=== PATIENT | male | born 1970 | race African-American/Black ===

== ENCOUNTER 2017-12-22 11:11 | Emergency (ER) | payer MEDICAID ==
[~2017-12-22] VITALS: Ht 182.9 cm; Wt 99.0 kg
[2017-12-22] MEDS ORDERED: CEFTRIAXONE SODIUM 1 G/VIAL IM ONE (12:15)
[2017-12-22] MEDS ORDERED: LIDOCAINE HCL/PF 1% 2ML VIAL INFIL ONE (12:15)
[2017-12-22] MEDS ORDERED: IBUPROFEN 800MG TABLET PO ONE (12:15)
[2017-12-22] MEDS ORDERED: LIDOCAINE HCL/PF 1% 10 MG/ML 5ML VIAL IJ NR (12:35)
[2017-12-22 14:47] VITALS: BP 130/84
== END 2017-12-22 14:48 | disposition home or self-care (01) ==
LOC: ER 11:11
DX: S61.512A Laceration without foreign body of left wrist, initial encounter (principal); S60.222A Contusion of left hand, initial encounter; I10 Essential (primary) hypertension; F12.10 Cannabis abuse, uncomplicated; F17.200 Nicotine dependence, unspecified, uncomplicated; X99.1XXA Assault by knife, initial encounter; Y93.89 Activity, other specified; Y92.488 Other paved roadways as the place of occurrence of the external cause
CPT/HCPCS: 73110; 73120; 96372; 99284; J0696; J3490

== ENCOUNTER 2019-11-10 07:15 | Emergency (ER) | payer MEDICAID ==
[~2019-11-10] VITALS: Ht 188 cm; Wt 103.0 kg
[2019-11-10] MEDS ORDERED: LIDOCAINE HCL/PF 1% 10 MG/ML 5ML VIAL IJ ONE (08:15)
[2019-11-10] MEDS ORDERED: BACITRACIN ZINC OINT UDPKT TOP ONE (08:15)
[2019-11-10] MEDS ORDERED: IBUPROFEN 600MG TABLET PO ONE (08:15)
[2019-11-10 09:25] VITALS: BP 134/76
== END 2019-11-10 09:50 | disposition home or self-care (01) ==
LOC: ER 07:15
DX: S61.412A Laceration without foreign body of left hand, initial encounter (principal); X58.XXXA Exposure to other specified factors, initial encounter; Y93.89 Activity, other specified; Y92.89 Other specified places as the place of occurrence of the external cause; I10 Essential (primary) hypertension
CPT/HCPCS: 12004; 73130; 99283; J3490

== ENCOUNTER 2020-01-02 07:34 | Emergency (ER) | payer MEDICAID ==
[~2020-01-02] VITALS: Ht 177.8 cm; Wt 99.0 kg
[2020-01-02] MEDS ORDERED: ACETAMINOPHEN 325MG TABLET PO STA (08:26)
[2020-01-02] MEDS ORDERED: TETANUS, DIPHTHERIA, PERTUSSIS VAC/PF 0.5ML (>7YR OLD) IM ONE (08:30)
[2020-01-02 09:25] LABS: BASOPHILS % 0.3 % (0.0-2.0); EOSINOPHILS % 1.3 % (0.0-5.0); HEMATOCRIT. 37.2 % (42.0-52.0); HEMOGLOBIN. 12.6 g/dL (14.0-18.0); LYMPHOCYTES % 7.1 % (20.0-50.0); MEAN CORPUSCULAR VOLUME 91.5 fL (80.0-94.0); MEAN PLATELET VOLUME 9.6 fl (7.4-10.4); MONOCYTES % 4.1 % (2.0-8.0); NEUTROPHILS % 87.2 % (40.0-76.0); PLATELET 155 x1000/uL (130-400); RED BLOOD CELL COUNT 4.07 mill/uL (4.7-6.1); RED CELL DISTRIBUTION WIDTH 13.3 % (11.6-14.6)
[2020-01-02 09:31] LABS: CHLORIDE 110 mEq/L (98-107)
[2020-01-02] MEDS ORDERED: ASPIRIN 81MG TABLET PO ONE (10:00)
[2020-01-02] MEDS ORDERED: KETAMINE HCL 50 MG/ML 10ML IV ONE ×4 (11:00→12:45)
[2020-01-02] MEDS ORDERED: MIDAZOLAM HCL 2 MG/2 ML VIAL IV ONE ×3 (11:30→14:15)
[2020-01-02] MEDS ORDERED: MIDAZOLAM HCL 100 MG in DEXT 5% WATER 80 ML IV ONE ×2 (12:15→12:30)
[2020-01-02] MEDS ORDERED: LORAZEPAM 2MG/ML CPJ IV ONE (12:15)
[2020-01-02] MEDS ORDERED: PROPOFOL 200MG/20ML VIAL IV ONE (12:15)
[2020-01-02 12:45] LABS: BG BASE EXCESS -4.3 mmol/L (-2.0-2.0); BG CARBOXYHEMOGLOBIN 0.8 % (0.5-1.5); BG DEOXYHEMOGLOBIN 0.8 % (0.0-5.0); BG HCO3 ACT 24.2 mmol/L (22.0-26.0); BG METHEMOGLOBIN 0.2 % (0.0-1.5); BG OXYGEN SATURATION 99.2 % (92.0-98.5); BG OXYHEMOGLOBIN 98.2 % (94.0-97.0); BG PCO2 59.4 mmHg (35.0-45.0); BG PH 7.227 (7.350-7.450); BG SAMPLE SITE LEFT FEMORAL; BG TOTAL HEMOGLOBIN 13.5 g/dL (12.0-18.0); BG VENT MODE VENT - AC
[2020-01-02 14:11] LABS: *AMPHETAMINES SCREEN URINE PRESUMTIVE POSITIVE (NEGATIVE); *BARBITURATES SCREEN URINE NEGATIVE (NEGATIVE); *BENZODIAZEPINES SCREEN URINE NEGATIVE (NEGATIVE); *COCAINE SCREEN URINE PRESUMTIVE POSITIVE (NEGATIVE)
[2020-01-02 14:12] LABS: CANNABINOID URINE SCREEN NEGATIVE (NEGATIVE); METHADONE URINE SCREEN NEGATIVE (NEGATIVE); OPIATES URINE SCREEN NEGATIVE (NEGATIVE); PHENCYCLIDINE URINE SCREEN PRESUMTIVE POSITIVE (NEGATIVE)
[2020-01-02 14:27] VITALS: BP 105/51
== END 2020-01-02 13:31 | disposition short-term general hospital (02) ==
LOC: ER 07:34
DX: R07.89 Other chest pain (principal); R77.8 Other specified abnormalities of plasma proteins; S22.32XA Fracture of one rib, left side, initial encounter for closed fracture; I10 Essential (primary) hypertension; F12.10 Cannabis abuse, uncomplicated; S27.9XXA Injury of unspecified intrathoracic organ, initial encounter; V49.40XA Driver injured in collision with unspecified motor vehicles in traffic accident, initial encounter; Y93.89 Activity, other specified; Y92.89 Other specified places as the place of occurrence of the external cause; Y99.8 Other external cause status
CPT/HCPCS: 31500; 36415; 36600; 71045; 71260; 80053; 80305; 82375; 82805; 83880; 84484; 85025; 90471; 90715; 93005; 96365; 96375; 99285; J2060; J2250; J2704; J3490; J7060

== ENCOUNTER 2020-03-07 17:56 | Emergency (ER) | payer MEDICAID ==
[~2020-03-07] VITALS: Ht 182.9 cm; Wt 106.0 kg
[2020-03-07 18:05] VITALS: BP 136/84
== END 2020-03-07 23:45 | disposition left against medical advice (07) ==
LOC: ER 17:56
DX: R33.9 Retention of urine, unspecified (principal); I10 Essential (primary) hypertension
CPT/HCPCS: 99283